=== PATIENT | male | born 1945 | race Caucasian/White ===

== ENCOUNTER 2016-11-12 04:44 | Emergency (ER) | payer MEDICARE ==
--- NOTE | 2016-11-16 20:08 | ER ---
ADMIT: 11/12/2016 RM/LOC: ER [facility] MR#: [id number] [place], [place] [id number] [facility] [address] [place] [address] Emergency Room Report SEX: M AGE: 71 : 1945 DATE: 11/12/2016 The patient is a 71-year-old male with end-stage COPD who returned from [place] having shortness of breath today. He used albuterol 3 times prior to bed but awoke with extreme dyspnea. Paramedics treated with 2 DuoNeb, Solu- Medrol 125 push with improvement. The patient did require high-flow O2 to get sats in the 90s. The patient denies any chest pain, except tightness fevers, chills, nausea, or vomiting. He was hypertensive in the 180s to 190s initially. Exam remarkable for nontoxic, afebrile male, currently receiving DuoNeb, aerosol, nondiaphoretic. Minimal wheezes noted and decreased breath sounds typical of his severe COPD and emphysema. Chest x-ray confirms COPD emphysema but no pneumothorax. WBC 12.4, hemoglobin 13.4. Lactic 1.6, CRP less than 0.29. Lipase 211, BNP 283. D-dimer 0.41, troponin 0.023. ABGs 3 L, pH 7.35, pCO2 of 50, PO2 of 129, O2 titrated off maintaining sats 92-93. EKG shows sinus tach with right axis deviation, minimal ST depression. No significant change from August 04, 2016. The patient received albuterol 15 mg continuous, nitroglycerin sublingual, morphine 4 mg IV push, and Lasix 40 mg IV push with further improvement. Home with doxycycline 100 mg b.i.d. x10 days. Prednisone 40 mg 12-day taper starting today. Follow up Dr. Gunn this week. James Chen MD/ michael JOB #: [id number] CC: James Chen MD, Attending Physician Keiht Gunn MD, Family Physician
== END 2016-11-12 06:50 | disposition home or self-care (01) ==
LOC: ER 04:44
DX: J44.1 Chronic obstructive pulmonary disease with (acute) exacerbation (principal); Z90.49 Acquired absence of other specified parts of digestive tract; Z87.891 Personal history of nicotine dependence; Z79.899 Other long term (current) drug therapy; I10 Essential (primary) hypertension; Z79.01 Long term (current) use of anticoagulants